=== PATIENT | male | born 2000 | race Two or more races ===

== ENCOUNTER 2022-10-16 20:36 | Emergency (ER) | payer OTHER ==
[~2022-10-16] VITALS: Ht 182.9 cm; Wt 102.1 kg
[2022-10-16] MEDS ORDERED: predniSONE 20 MG TABLET ONE (20:59)
[2022-10-16] MEDS ORDERED: predniSONE 10 MG TABLET PO ONE (21:00)
[2022-10-16] MEDS ORDERED: IPRATROPIUM BROMIDE 0.5 MG/2.5 ML NEBU NEB ONE (21:00)
[2022-10-16] MEDS ORDERED: ALBUTEROL SULFATE 2.5 MG/3 ML NEBU NEB ONE ×3 (21:00→23:15)
[2022-10-16] MEDS ORDERED: IPRATROPIUM BROMIDE 0.5 MG/2.5 ML NEBU ONE (21:16)
[2022-10-16] MEDS ORDERED: ALBUTEROL SULFATE 2.5 MG/3 ML NEBU ONE ×3 (21:16→23:01)
[2022-10-16] MEDS ORDERED: ALBU8.5H8 IH (21:25)
[2022-10-16] MEDS ORDERED: PRED20TA PO (21:25)
[2022-10-16] MEDS ORDERED: ALBUTEROL SULFATE 2.5 MG/ 0.5 ML NEBU NEB ONE (22:00)
--- NOTE | 2022-10-17 00:09 | NUR ---
patient refuses to stay. Patient's SpO2 is ranging from 89-94.
--- NOTE | 2022-10-17 00:18 | NUR ---
Patient denies SOB
--- NOTE | 2022-10-17 00:19 | NUR ---
Patient discharged to home in stable condition. Written and verbal after care instructions given. Patient verbalizes understanding of instructions. Stressed follow up or return to ER for worsening s/s. Patient is a/ox4, NAD noted, patient is able to walk with steady gait Addendum: 10/17/22 at 0026 by STEVE Patient does not wish to proceed with medical care recommended by Dr. Haddad. Patient given information related to possible complications, up to and including , which could occur as a result of leaving the hospital at this time. Patient verbalizes understanding of risks involved due to leaving against medical advice. Patient has signed AMA form. Patient is accompanied by his girlfriend
[2022-10-17 00:27] VITALS: BP 127/76
== END 2022-10-17 00:28 | disposition left against medical advice (07) ==
LOC: ER 20:36
DX: J45.902 Unspecified asthma with status asthmaticus (principal); R09.02 Hypoxemia; Z53.29 Procedure and treatment not carried out because of patient's decision for other reasons; F17.210 Nicotine dependence, cigarettes, uncomplicated
CPT/HCPCS: 99285; 99406; 94640; 94644; 94645; J7512; 94664; A4663; J3590